=== PATIENT | female | born 1965 | race Caucasian/White ===

== ENCOUNTER → 2017-03-18 | Outpatient (REF) | payer BC ==
[2017-03-18 12:48] LABS: MEAN CORPUSCULAR HEMOGLOBIN 31.7 pg (27.0-33.0); MEAN CORPUSCULAR HGB CONC 35.7 g/dl (32.0-36.5); MEAN CORPUSCULAR VOLUME 88.6 fl (80.0-96.0); RED CELL DISTRIBUTION WIDTH 13.7 % (11.5-14.5); WHITE BLOOD COUNT 9.2 K/mm3 (4.0-10.0)
[2017-03-18 13:15] LABS: ANION GAP 7 MEQ/L (8-16); BLOOD UREA NITROGEN 21 MG/DL (7-18); CALCIUM LEVEL 9.8 MG/DL (8.5-10.1); CARBON DIOXIDE LEVEL 28 MEQ/L (21-32); CHLORIDE LEVEL 102 MEQ/L (98-107); GLOMERULAR FILTRATION RATE > 60.0 (>51); GLUCOSE, FASTING 133 MG/DL (70-105); POTASSIUM SERUM 4.3 MEQ/L (3.5-5.1); SODIUM LEVEL 137 MEQ/L (136-145)
[2017-03-18 13:16] LABS: ALBUMIN 4.3 GM/DL (3.2-5.2); ALBUMIN/GLOBULIN RATIO 1.34 (1.00-1.93); ALKALINE PHOSPHATASE 97 U/L (45-117); ALT/SGPT 25 U/L (12-78); AST/SGOT 24 U/L (15-37); BILIRUBIN,TOTAL 1.1 MG/DL (0.2-1.0); CHOLESTEROL LEVEL 135 MG/DL (<200); FREE T4 1.59 NG/DL (0.76-1.46); TOTAL PROTEIN 7.5 GM/DL (6.4-8.2); TRIGLYCERIDES LEVEL 138 MG/DL (<150)
== END ==
LOC: M SFHCADAM 09:02
PROVIDERS: ATTEND Physician Assistant
DX: E03.9 Hypothyroidism, unspecified (principal); E11.65 Type 2 diabetes mellitus with hyperglycemia; M79.1 Myalgia; E78.4 Other hyperlipidemia

== ENCOUNTER → 2019-01-13 | Outpatient (REF) | payer BC ==
[2019-01-13 19:46] LABS: CALCIUM LEVEL 8.8 MG/DL (8.5-10.1); CREATININE FOR GFR 1.03 MG/DL (0.55-1.30); GLOMERULAR FILTRATION RATE 59.2 (>51); POTASSIUM SERUM 4.3 MEQ/L (3.5-5.1)
[2019-01-13 19:47] LABS: ALBUMIN 4.2 GM/DL (3.2-5.2); BILIRUBIN,TOTAL 1.3 MG/DL (0.2-1.0); CHOLESTEROL RISK RATIO 2.76 (<5); TOTAL PROTEIN 6.9 GM/DL (6.4-8.2)
[2019-01-13 20:00] LABS: HEMATOCRIT 47.9 % (36.0-47.0); HEMOGLOBIN 16.3 g/dl (12.0-15.5); MEAN CORPUSCULAR HEMOGLOBIN 31.9 pg (27.0-33.0); MEAN CORPUSCULAR VOLUME 93.7 fl (80.0-96.0); PLATELET COUNT, AUTOMATED 207 10^3/uL (150-450); RED BLOOD COUNT 5.11 10^6/uL (4.00-5.40); WHITE BLOOD COUNT 9.7 10^3/uL (4.0-10.0)
[2019-01-13 20:18] LABS: CREATININE, URINE 76.9 MG/DL; MALB URINE SIEMENS 47.9 MG/L; MAU/CREAT RATIO 62.2 MCG/MG (0.0-30.0)
[2019-01-13 20:39] LABS: HEMOGLOBIN A1c 8.5 %
== END ==
LOC: M SFHCADAM 15:29
PROVIDERS: ATTEND Physician Assistant
DX: E11.65 Type 2 diabetes mellitus with hyperglycemia (principal); E78.49 Other hyperlipidemia; E03.9 Hypothyroidism, unspecified

== ENCOUNTER → 2020-11-20 | Outpatient (REF) | payer BC ==
[2020-11-20 16:49] LABS: HEMATOCRIT 45.2 % (36.0-47.0); HEMOGLOBIN 15.5 g/dl (12.0-15.5); MEAN CORPUSCULAR HEMOGLOBIN 30.5 pg (27.0-33.0); MEAN CORPUSCULAR HGB CONC 34.3 g/dl (32.0-36.5); PLATELET COUNT, AUTOMATED 196 10^3/uL (150-450); RED BLOOD COUNT 5.08 10^6/uL (4.00-5.40)
[2020-11-20 17:06] LABS: ALBUMIN 3.9 GM/DL (3.2-5.2); BILIRUBIN,TOTAL 1.1 MG/DL (0.2-1.0); CALCIUM LEVEL 9.6 MG/DL (8.5-10.1); CHOLESTEROL RISK RATIO 2.592 (<5); CREATININE FOR GFR 1.02 MG/DL (0.55-1.30); FOLATE 11.1 NG/ML; FREE T4 1.24 NG/DL (0.76-1.46); GLOMERULAR FILTRATION RATE 59.5 (>51); POTASSIUM SERUM 3.9 MEQ/L (3.5-5.1); THYROID STIMULATING HORMONE 1.47 uIU/ML (0.358-3.740); TOTAL PROTEIN 6.7 GM/DL (6.4-8.2)
[2020-11-20 17:23] LABS: HEMOGLOBIN A1c 9.7 %
[2020-11-20 17:53] LABS: CREATININE, URINE 50.9 MG/DL; MAU/CREAT RATIO 2357.5 MCG/MG (0.0-30.0)
== END ==
LOC: M SFHCADAM 13:45
PROVIDERS: ATTEND Physician Assistant
DX: E11.65 Type 2 diabetes mellitus with hyperglycemia (principal); E55.9 Vitamin D deficiency, unspecified; E03.9 Hypothyroidism, unspecified

== ENCOUNTER → 2021-07-16 | Outpatient (REF) | payer BC ==
[2021-07-16 18:21] LABS: HEMATOCRIT 45.7 % (36.0-47.0); HEMOGLOBIN 15.5 g/dl (12.0-15.5); MEAN CORPUSCULAR HEMOGLOBIN 31.6 pg (27.0-33.0); MEAN CORPUSCULAR HGB CONC 33.9 g/dl (32.0-36.5); MEAN CORPUSCULAR VOLUME 93.3 fl (80.0-96.0); PLATELET COUNT, AUTOMATED 195 10^3/uL (150-450); WHITE BLOOD COUNT 11.9 10^3/uL (4.0-10.0)
[2021-07-16 18:39] LABS: ALBUMIN 3.7 GM/DL (3.2-5.2); ALT/SGPT 26 U/L (12-78); BILIRUBIN,TOTAL 0.8 MG/DL (0.2-1.0); BLOOD UREA NITROGEN 18 MG/DL (7-18); CALCIUM LEVEL 9.1 MG/DL (8.5-10.1); CARBON DIOXIDE LEVEL 33 MEQ/L (21-32); CHLORIDE LEVEL 106 MEQ/L (98-107); CHOLESTEROL LEVEL 129 MG/DL (<200); CHOLESTEROL RISK RATIO 2.345 (<5); CREATININE FOR GFR 0.86 MG/DL (0.55-1.30); FREE T4 1.34 NG/DL (0.76-1.46); GLOMERULAR FILTRATION RATE > 60.0 (>51); GLUCOSE, FASTING 96 MG/DL (70-100); HDL CHOLESTEROL 55 MG/DL (>40); LDL CHOLESTEROL 44 MG/DL (<100); NON-HDL-C 74 MG/DL; POTASSIUM SERUM 3.9 MEQ/L (3.5-5.1); SODIUM LEVEL 140 MEQ/L (136-145); TOTAL PROTEIN 6.8 GM/DL (6.4-8.2); TRIGLYCERIDES LEVEL 150 MG/DL (<150)
[2021-07-16 18:41] LABS: TOTAL 25(OH) VITAMIN D 13.4 NG/ML (30.0-100.0); VITAMIN B12 LEVEL 975 PG/ML
[2021-07-16 18:42] LABS: FOLATE 14.6 NG/ML
[2021-07-16 18:50] LABS: HEMOGLOBIN A1c 6.3 %
[2021-07-16 19:14] LABS: CREATININE, URINE 69.9 MG/DL; MAU/CREAT RATIO 2260.3 MCG/MG (0.0-30.0)
== END ==
LOC: M SFHCADAM 15:06
PROVIDERS: ATTEND Physician Assistant
DX: E11.65 Type 2 diabetes mellitus with hyperglycemia (principal); E03.9 Hypothyroidism, unspecified; E55.9 Vitamin D deficiency, unspecified; E78.49 Other hyperlipidemia

== ENCOUNTER → 2022-11-04 | Outpatient (REF) | payer BC ==
[2022-11-04 16:12] LABS: HEMOGLOBIN 15.9 g/dl (12.0-15.5); MEAN CORPUSCULAR HEMOGLOBIN 31.5 pg (27.0-33.0); MEAN CORPUSCULAR HGB CONC 33.8 g/dl (32.0-36.5); MEAN CORPUSCULAR VOLUME 93.1 fl (80.0-96.0); PLATELET COUNT, AUTOMATED 182 10^3/uL (150-450); RED BLOOD COUNT 5.05 10^6/uL (4.00-5.40); WHITE BLOOD COUNT 8.7 10^3/uL (4.0-10.0)
[2022-11-04 16:39] LABS: CREATININE, URINE 83.6 MG/DL
[2022-11-04 16:43] LABS: ALBUMIN 3.2 G/DL (3.2-5.2); BILIRUBIN,TOTAL 0.9 MG/DL (0.3-1.2); CHOLESTEROL RISK RATIO 4.83 (<5); CREATININE FOR GFR 1.01 MG/DL (0.55-1.30); GLOMERULAR FILTRATION RATE 59.7 (>51); HDL CHOLESTEROL 57.9 MG/DL (>40); LDL CHOLESTEROL 178.3 MG/DL (<100); POTASSIUM SERUM 4.2 MMOL/L (3.5-5.1); TOTAL PROTEIN 6.1 G/DL (5.7-8.2)
[2022-11-04 16:44] LABS: FREE T4 1.12 NG/DL (0.89-1.76); THYROID STIMULATING HORMONE 6.784 uIU/ML (0.55-4.78); TOTAL 25(OH) VITAMIN D 9.6 NG/ML (20.0-100.0)
[2022-11-04 17:22] LABS: MALB URINE SIEMENS > 3800.0 MG/DL; MAU/CREAT RATIO 4545.4 MCG/MG (0.0-30.0)
[2022-11-04 17:31] LABS: HEMOGLOBIN A1c 6.6 % (4.0-6.0)
== END ==
LOC: M SFHCADAM 14:14
PROVIDERS: ATTEND Physician Assistant
DX: E78.49 Other hyperlipidemia (principal); E55.9 Vitamin D deficiency, unspecified; E11.65 Type 2 diabetes mellitus with hyperglycemia; E03.9 Hypothyroidism, unspecified; F17.210 Nicotine dependence, cigarettes, uncomplicated

== ENCOUNTER → 2024-06-03 | Outpatient (REF) | payer BC ==
[2024-06-03 13:29] LABS: BASO # 0.1 10^3/uL (0.0-0.2); BASO % 0.5 % (0.0-1.0); EOS # 0.2 10^3/uL (0.0-0.5); EOS % 2.1 % (0.0-3.0); HEMATOCRIT 44.7 % (36.0-47.0); HEMOGLOBIN 14.7 g/dl (12.0-15.5); LYMPH # 2.3 10^3/uL (1.5-5.0); LYMPH % 22.1 % (24.0-44.0); MEAN CORPUSCULAR HEMOGLOBIN 31.1 pg (27.0-33.0); MEAN CORPUSCULAR HGB CONC 32.9 g/dl (32.0-36.5); MEAN CORPUSCULAR VOLUME 94.7 fl (80.0-96.0); MONO # 0.8 10^3/uL (0.0-0.8); MONO % 7.5 % (2.0-8.0); NEUTROPHILS # 6.9 10^3/uL (1.5-8.5); NEUTROPHILS % 67.1 % (36.0-66.0); PLATELET COUNT, AUTOMATED 202 10^3/uL (150-450); RED BLOOD COUNT 4.72 10^6/uL (4.00-5.40); WHITE BLOOD COUNT 10.3 10^3/uL (4.0-10.0)
[2024-06-03 13:31] LABS: C REACTIVE PROTEIN QUANTITATIV < 0.40 MG/DL (<1.0)
[2024-06-03 13:33] LABS: ALBUMIN 2.8 G/DL (3.2-5.2); ALKALINE PHOSPHATASE 81 U/L (46-116); ALT/SGPT 16 U/L (7.0-40); AST/SGOT 20 U/L (<34); BILIRUBIN,TOTAL 0.5 MG/DL (0.3-1.2); BLOOD UREA NITROGEN 34 MG/DL (9-23); CALCIUM LEVEL 8.8 MG/DL (8.3-10.6); CARBON DIOXIDE LEVEL 33 MMOL/L (20-31); CHLORIDE LEVEL 108 MMOL/L (98-107); CHOLESTEROL LEVEL 224 MG/DL (<200); CHOLESTEROL RISK RATIO 4.37 (<5); CREATININE FOR GFR 1.23 MG/DL (0.55-1.30); ERYTHROCYTE SEDIMENTATION RATE 13 mm/hr (0-30); GLOMERULAR FILTRATION RATE 47.4 (>45); GLUCOSE, FASTING 106 MG/DL (74-106); HDL CHOLESTEROL 51.2 MG/DL (>40); LDL CHOLESTEROL 138.8 MG/DL (<100); NON-HDL-C 172.8 MG/DL; POTASSIUM SERUM 4.6 MMOL/L (3.5-5.1); SODIUM LEVEL 142 MMOL/L (136-145); THYROID STIMULATING HORMONE 3.758 uIU/ML (0.55-4.78); TOTAL PROTEIN 5.4 G/DL (5.7-8.2); TRIGLYCERIDES LEVEL 170 MG/DL (<150)
[2024-06-03 13:34] LABS: FREE T4 1.13 NG/DL (0.89-1.76)
[2024-06-03 13:36] LABS: RHEUMATOID FACTOR QUANT 6.9 IU/ML (<14)
[2024-06-03 13:57] LABS: HEMOGLOBIN A1c 5.8 % (4.0-6.0)
== END ==
LOC: M SFHCADAM 07:49
PROVIDERS: ATTEND Physician Assistant
DX: E11.9 Type 2 diabetes mellitus without complications (principal); F17.210 Nicotine dependence, cigarettes, uncomplicated; E78.00 Pure hypercholesterolemia, unspecified; E03.9 Hypothyroidism, unspecified; M54.31 Sciatica, right side; G89.29 Other chronic pain; M25.571 Pain in right ankle and joints of right foot; M25.551 Pain in right hip; E16.2 Hypoglycemia, unspecified

== ENCOUNTER → 2025-05-17 | Outpatient (REF) | payer BC ==
[2025-05-17 14:35] LABS: BASO # 0.1 10^3/uL (0.0-0.2); BASO % 0.6 % (0.0-1.0); EOS # 0.1 10^3/uL (0.0-0.5); EOS % 0.9 % (0.0-3.0); LYMPH # 2.1 10^3/uL (1.5-5.0); LYMPH % 23.2 % (24.0-44.0); MONO # 0.6 10^3/uL (0.0-0.8); MONO % 6.5 % (2.0-8.0); NEUTROPHILS # 6.2 10^3/uL (1.5-8.5); NEUTROPHILS % 68.4 % (36.0-66.0); PLATELET COUNT, AUTOMATED 272 10^3/uL (150-450)
[2025-05-17 14:43] LABS: ESTIMATED AVERAGE GLUCOSE 143.0 MG/DL (60-110)
[2025-05-17 15:05] LABS: VITAMIN B12 LEVEL 517.0 PG/ML (211-911)
[2025-05-17 15:06] LABS: ALT/SGPT 13.0 U/L (7.0-40); AST/SGOT 21.0 U/L (<34); CALCIUM LEVEL 9.2 MG/DL (8.3-10.6); CARBON DIOXIDE LEVEL 26.0 MMOL/L (20-31); CHLORIDE LEVEL 104.0 MMOL/L (98-107); CHOLESTEROL LEVEL 267.0 MG/DL (<200); CHOLESTEROL RISK RATIO 4.57 (<5); CREATININE FOR GFR 1.7 MG/DL (0.55-1.30); FREE T4 1.9 NG/DL (0.89-1.76); GLOMERULAR FILTRATION RATE 33.9 (>45); LDL CHOLESTEROL 169.5 MG/DL (<100); NON-HDL-C 208.7 MG/DL; POTASSIUM SERUM 5.5 MMOL/L (3.5-5.1); SODIUM LEVEL 141.0 MMOL/L (136-145); TRIGLYCERIDES LEVEL 196.0 MG/DL (<150)
== END ==
LOC: M SFHCADAM 11:04
PROVIDERS: ATTEND Physician Assistant
DX: E11.9 Type 2 diabetes mellitus without complications (principal); E03.9 Hypothyroidism, unspecified; Z79.4 Long term (current) use of insulin; F17.210 Nicotine dependence, cigarettes, uncomplicated; K21.9 Gastro-esophageal reflux disease without esophagitis; E78.00 Pure hypercholesterolemia, unspecified

== ENCOUNTER → 2025-06-09 | Outpatient (CLI) | payer BC | LOC: M RAD 14:37 | PROVIDERS: ATTEND Physician Assistant | DX: N17.9 Acute kidney failure, unspecified (principal) ==

== ENCOUNTER → 2025-06-21 | Outpatient (CLI) | payer BC | LOC: M ADAMS 09:09 | PROVIDERS: ATTEND Physician Assistant | DX: M54.32 Sciatica, left side (principal); M25.552 Pain in left hip; M47.816 Spondylosis without myelopathy or radiculopathy, lumbar region; N17.9 Acute kidney failure, unspecified; R60.0 Localized edema ==

== ENCOUNTER → 2025-06-21 | Outpatient (REF) | payer BC ==
[2025-06-21 13:28] LABS: CALCIUM LEVEL 9.3 MG/DL (8.3-10.6); CARBON DIOXIDE LEVEL 26.0 MMOL/L (20-31); CHLORIDE LEVEL 108.0 MMOL/L (98-107); CREATININE FOR GFR 1.68 MG/DL (0.55-1.30); GLOMERULAR FILTRATION RATE 34.4 (>45); MAGNESIUM LEVEL 2.0 MG/DL (1.8-2.4); POTASSIUM SERUM 5.1 MMOL/L (3.5-5.1); SODIUM LEVEL 143.0 MMOL/L (136-145)
[2025-06-21 13:30] LABS: VITAMIN B12 LEVEL 517.0 PG/ML (211-911)
== END ==
LOC: M SFHCADAM 09:05
PROVIDERS: ATTEND Physician Assistant
DX: N17.9 Acute kidney failure, unspecified (principal); R60.0 Localized edema; M54.32 Sciatica, left side; M25.552 Pain in left hip

== ENCOUNTER → 2025-07-20 | Outpatient (REF) | payer BC ==
[2025-07-20 14:25] LABS: APPEARANCE, URINE HAZY (CLEAR); BACTERIA, URINE AUTO NEGATIVE (NEGATIVE); BILIRUBIN, URINE AUTO NEGATIVE (NEGATIVE); BLOOD, URINE BLOOD NEGATIVE (NEGATIVE); GLUCOSE, URINE (UA) AUTO 3+ mg/dL (NEGATIVE); KETONE, URINE AUTO TRACE mg/dL (NEGATIVE); LEUKOCYTE ESTERASE, URINE AUTO NEGATIVE (NEGATIVE); NITRITE, URINE AUTO NEGATIVE (NEGATIVE); PROTEIN, URINE AUTO 3+ mg/dL (NEGATIVE); RBC, URINE AUTO 1 /HPF (0-3); SPECIFIC GRAVITY URINE AUTO 1.018 (1.002-1.035); SQUAMOUS EPITHELIAL CELL UR AU 3 /HPF (0-6); UROBILINOGEN, URINE AUTO 0.2 mg/dL (0.0-2.0); WBC, URINE AUTO 2 /HPF (0-3)
[2025-07-20 14:56] LABS: ALT/SGPT 16.0 U/L (7.0-40); AST/SGOT 20.0 U/L (<34); CALCIUM LEVEL 8.9 MG/DL (8.3-10.6); CARBON DIOXIDE LEVEL 27.0 MMOL/L (20-31); CHLORIDE LEVEL 106.0 MMOL/L (98-107); CHOLESTEROL LEVEL 214.0 MG/DL (<200); CHOLESTEROL RISK RATIO 3.45 (<5); CREATININE FOR GFR 1.86 MG/DL (0.55-1.30); CREATININE, URINE 60.7 MG/DL; GLOMERULAR FILTRATION RATE 30.4 (>45); LDL CHOLESTEROL 120.5 MG/DL (<100); NON-HDL-C 152.1 MG/DL; POTASSIUM SERUM 5.5 MMOL/L (3.5-5.1); SODIUM LEVEL 142.0 MMOL/L (136-145); TRIGLYCERIDES LEVEL 158.0 MG/DL (<150)
[2025-07-20 15:00] LABS: FREE T4 1.59 NG/DL (0.89-1.76)
[2025-07-20 15:13] LABS: MAU/CREAT RATIO 3943.9 MCG/MG (0.0-30.0)
[2025-07-20 15:27] LABS: ESTIMATED AVERAGE GLUCOSE 131.0 MG/DL (60-110)
== END ==
LOC: M SFHCADAM 09:43
PROVIDERS: ATTEND Physician Assistant
DX: E11.9 Type 2 diabetes mellitus without complications (principal); E78.00 Pure hypercholesterolemia, unspecified; N18.32 Chronic kidney disease, stage 3b; E03.9 Hypothyroidism, unspecified

== ENCOUNTER → 2025-08-01 | Outpatient (REF) | payer BC ==
[2025-08-01 13:54] LABS: CALCIUM LEVEL 9.0 MG/DL (8.3-10.6); CARBON DIOXIDE LEVEL 28.0 MMOL/L (20-31); CHLORIDE LEVEL 105.0 MMOL/L (98-107); CREATININE FOR GFR 2.09 MG/DL (0.55-1.30); GLOMERULAR FILTRATION RATE 26.5 (>45); POTASSIUM SERUM 4.4 MMOL/L (3.5-5.1); SODIUM LEVEL 142.0 MMOL/L (136-145)
== END ==
LOC: M SFHCADAM 09:24
PROVIDERS: ATTEND Physician Assistant
DX: N17.9 Acute kidney failure, unspecified (principal)

== ENCOUNTER → 2025-08-07 | Outpatient (REF) | payer BC ==
[2025-08-07 13:33] LABS: PLATELET COUNT, AUTOMATED 222 10^3/uL (150-450)
[2025-08-07 14:03] LABS: ALT/SGPT 16.0 U/L (7.0-40); AST/SGOT 20.0 U/L (<34); CALCIUM LEVEL 9.0 MG/DL (8.3-10.6); CARBON DIOXIDE LEVEL 28.0 MMOL/L (20-31); CHLORIDE LEVEL 108.0 MMOL/L (98-107); CREATININE FOR GFR 1.56 MG/DL (0.55-1.30); GLOMERULAR FILTRATION RATE 37.6 (>45); POTASSIUM SERUM 4.9 MMOL/L (3.5-5.1); SODIUM LEVEL 143.0 MMOL/L (136-145)
== END ==
LOC: M SFHCADAM 09:21
PROVIDERS: ATTEND Physician Assistant
DX: E87.5 Hyperkalemia (principal); N17.9 Acute kidney failure, unspecified

== ENCOUNTER → 2025-08-08 | Outpatient (CLI) | payer BC ==
[~2025-08-08] MED LIST: PROHANCE 279.3MG/ML 5ML VIAL ONE
== END ==
LOC: M PLAIMG 08:26
PROVIDERS: ATTEND Nurse Practitioner Family
DX: N28.9 Disorder of kidney and ureter, unspecified (principal)